=== PATIENT | female | born 2000 | race American Indian/Alaskan Native ===

== ENCOUNTER 2024-09-22 07:49 | Emergency (ER) | payer MEDICAID, SELFPAY ==
[2024-09-22 08:22] VITALS: BP 116/74; PULSE 68; RESP 18; TEMP 37; O2SAT 99; BMI 35.7
--- NOTE | 2024-09-22 08:46 | EDNOTE_ITS ---
<Statement entered by Sylvie De Jesus MD - 09/29/24 04:26> As co-signing physician, I was present and available for consult prn. I concur with the plan and care as documented by the midlevel provider. Nausea/Vomit./Diarrhea-RME/HPI General Chief complaint: Nausea/Vomiting/Diarrhea Stated complaint: STOMACH/BACK BURNING,NAUCEOUS,ABD HURTS TO TOUCH Time Seen by Provider: 09/22/24 07:54 Arrival date/time: 09/22/24 07:49 This is a 23-year-old female that comes in with complaints of lower back pain and also burning to her stomach. Patient denies any urinary symptoms. Patient was diagnosed with H. pylori but did not finish the medications that she was prescribed. Patient states burning is better. Patient denies any past medical history. Related Data Previous Rx's ?Medication ?Instructions ?Recorded acetaminophen 500 mg capsule 500 mg PO QID PRN pain #3 0 caps 11/06/22 famotidine 20 mg tablet 20 mg PO BID #20 tabs ibuprofen 800 mg tablet 800 mg PO Q6H PRN pain #14 t abs 09/22/24 Allergies Allergy/AdvReac Type Severity Reaction Status Date / Time No Known Allergies Allergy Verified 09/22/24 07:53 Review of Systems Review of Systems Systems Reviewed: All systems reviewed, normal except as documented Past Medical History Past Medical History CARDIAC: Negative Congestive Heart Failure RESPIRATORY: Negative Chronic Obstructive Pulmonary Disease (COPD) GENITOURINARY: Negative Renal Disease ENDOCRINE: Negative Diabetes Mellitus Type 1 or Diabetes Mellitus Type 2 Social History SMOKING STATUS: Never smoker ED Exam General General appearance: Present alert and in no apparent distress Head Head exam: Present atraumatic Eye Eye exam: Present normal appearance, PERRL and EOMI ENT ENT exam: Present normal exam, normal oropharynx and mucous membranes moist Neck Neck exam: Present normal inspection, full ROM and trachea midline Chest Chest inspection: Present normal inspection and symmetric chest wall rise Respiratory Respiratory exam: Present normal lung sounds bilaterally Cardiovascular Cardiovascular exam: Present regular rate and other (Cap refill less than 2 seconds) Abdominal Exam Abdominal exam: Present soft and normal bowel sounds Extremities Exam Extremities exam: Present normal inspection and full ROM Back Exam Back exam: Present normal inspection and full ROM Neurological Exam Neurological exam: Present alert, oriented X3 and CN II-XII intact Psychiatric Psychiatric exam: Present normal affect and normal mood Skin Skin exam: Present warm, dry and intact Course Quality Measures none Orders Category Date Time Status HCG Qualitative,Urine Stat Lab 09/22/24 09:09 Completed Urinalysis, C/S if Indicated Stat Lab 09/22/24 09:09 Completed Urine Culture Stat Lab 09/22/24 09:09 Completed Famotidine [Pepcid] Med 09/22/24 08:37 Discontinued 20 mg PO X1 ONE Ibuprofen Tab [Motrin Tab] Med 09/22/24 10:03 Discontinued 800 mg PO X1 ONE Lidocaine 2% Viscous [Xylocaine 2% Viscous] Med 09/22/24 08:36 Discontinued 10 ml PO X1 ONE mg Hyd/Al Hyd/Kely Susp [Maalox Susp] Med 09/22/24 08:36 Discontinued 30 ml PO X1 ONE Vital Signs Vital signs: Vital Signs Temperature 98.6 F 09/22/24 08:22 Pulse Rate 68 09/22/24 08:22 Respiratory Rate 18 09/22/24 08:22 Blood Pressure 116/74 09/22/24 08:22 Pulse Oximetry (%) 99 09/22/24 08:22 Oxygen Delivery Method Room Air 09/22/24 08:22 Nausea/Vomiting/Diarrhea MDM Narrative MDM Narrative:: UA does not show acute infection. Patient feels better after GI cocktail. Will send patient to follow-up with primary provider. Patient was diagnosed with H. pylori but did not finish the last days of medication. Patient will need follow-up with her primary provider for this problem. Patient feels better and feels comfortable going home at this time. Patient data External records reviewed:: [facility] previous records Clinical information provided by:: patient Social determinants that could affect healthcare access:: none Patient has the following chronic illnesses:: h pylori How is presenting disease/condition affected by chronic disease/condition?: no chronic disease Evaluation data The following diagnostics were reviewed and interpreted by me:: lab results Lab and/or radiology exams considered but not ordered:: none Interpretation Summary: see note Medications / Prescriptions Medications / Prescriptions considered but not ordered:: none Medication administrations:: Medication Administration History Discontinued Medications Al Hydrox/Mg Hydrox/Simethicone (Mg Hyd/Al Hyd/Kely (Maalox Reg) Susp 30 Ml Udc) 30 ml PO X1 ONE Stop: 09/22/24 08:37 Last Admin: 09/22/24 09:01 Dose: 30 ml Documented By: DAVID Famotidine (Famotidine 20 Mg Tablet) 20 mg PO X1 ONE Stop: 09/22/24 08:38 Last Admin: 09/22/24 08:59 Dose: 20 mg Documented By: DAVID Ibuprofen (Ibuprofen Tab 400 Mg Tablet) 800 mg PO X1 ONE Stop: 09/22/24 10:04 Last Admin: 09/22/24 10:08 Dose: 800 mg Documented By: DAVID Lidocaine HCl (Lidocaine Viscous 2% 15 Ml Udc) 10 ml PO X1 ONE Stop: 09/22/24 08:37 Last Admin: 09/22/24 09:01 Dose: 10 ml Documented By: DAVID see mar Consultations Consultation(s) initiated? (list below): No Diagnosis Nausea Differential Diagnosis: food poisoning, gastroenteritis and other (gerd, gatritis, h pylori ) Most likely diagnosis given after review of the tests above:: abd pain likely secondary to h pyloric recnetly dx, feels better with gi cocktail Admission Indicated Admission indicated?: not indicated Admission Request Was there a request for admission?: No Disposition Plan Disposition Plan: Discharge Discharge Attestation Discharge Attestation: The patient and all family members were given an opportunity to ask questions and understood the discharge instructions. Discharge instructions specifically effects, indications for sooner follow up or return to the emergency department, and the expected course of current diagnosis. Patient condition: Stable Discharge Plan Plan Patient Disposition: HOME (Self Care) Patient condition on transfer: Stable Prescriptions/Referrals Prescriptions/Med Rec: New famotidine 20 mg tablet 20 mg PO BID Qty: 20 0RF ibuprofen 800 mg tablet 800 mg PO Q6H PRN (Reason: pain) Qty: 14 0RF No Action acetaminophen 500 mg capsule 500 mg PO QID PRN (Reason: pain) Qty: 30 0RF Referrals: Alvaro Sherman PA-C [Primary Care Provider] - In 1 week Problem List Clinical Impression: Abdominal pain Patient/Caregiver Discharge Instructions Discharge Activity: activity as tolerated Education Materials: Abdominal Pain Additional Instructions: Follow-up with primary provider tomorrow. Please make sure that you let them know that you did not finish the H. pylori medications. Come back to the emergency room if symptoms change or worsen. Print Language: Moldovan Stand Alone Forms: Sanna Award Info., Patient Portal Info Letter SHAHZAD/REPAIR CLERK Supervising Physician PA/REPAIR CLERK Supervising Physician: JOSÉ MANUEL
[2024-09-22] MEDS: FAMOTIDINE 20 MG TABLET PO (08:59)
[2024-09-22] MEDS: MG HYD/AL HYD/SIME (Maalox Reg) SUSP 30 ML UDC PO (09:01)
[2024-09-22] MEDS: LIDOCAINE VISCOUS 2% 15 ML UDC 10 ML PO (09:01)
[2024-09-22 09:32] LABS: Collection Type, Urine Voided
[2024-09-22 09:34] LABS: HCG Qualitative,Urine Negative
[2024-09-22 09:41] LABS: Bilirubin,Urine Negative (Negative); Blood,Urine Negative (Negative); Clarity,Urine Turbid (Clear/Hazy); Color,Urine Yellow (Lt Yel-Yel); Culture Indicated,Urine Not Indicated; Glucose, Urine Negative (Negative); Ketones,Urine Negative (Negative); Leukocyte Esterase,Urine Positive (Negative); Nitrite,Urine Negative (Negative); PH,Urine 5.5 (5.0-7.0); Protein,Urine Negative (Neg - Trace); RBC,Urine 1 /hpf (0-3); Squamous Epithelial Cell,Urine 11 /hpf (0-5); Urobilinogen,Urine Negative mg/dL (0.0-1.0); WBC,Urine 2 /hpf (0-5)
[2024-09-22] MEDS: IBUPROFEN TAB 400 MG TABLET 800 MG PO (10:08)
--- NOTE | 2024-09-22 10:30 | PC.NURSE ---
LAB CALLED AND NOTIFIED OF URINE CULTURE ADD ON. PER LAB, WILL ADD ON.
== END 2024-09-22 10:31 | disposition home or self-care (01) ==
PROVIDERS: Nurse Practitioner Family; Emergency Provider Emergency Medicine; PCP Physician Assistant
DX: R10.9 Unspecified abdominal pain (principal); M54.50 Low back pain, unspecified
CPT/HCPCS: 81001; 81025; 87086; 99283; J3490; A9270

== ENCOUNTER 2024-11-18 12:21 | Emergency (ER) | payer MEDICAID, SELFPAY ==
[2024-11-18 12:22] VITALS: BMI 34.5
[2024-11-18 12:34] VITALS: BP 114/78; PULSE 89; RESP 19; TEMP 36.5; O2SAT 98
--- NOTE | 2024-11-18 12:35 | XR_ITS ---
Examination: CT abdomen and pelvis without contrast. Coronal 3-D reconstructions. Sagittal 2-D reconstructions. Date and time of exam:November 18, 2024 1405 hours INDICATIONS: Generalized abdominal pain nausea vomiting and diarrhea today CTDI: vol (mGy): 9.15 DLP: (mGycm): 521 Technique: Axial images of the abdomen have been obtained, 3 mm slice thickness Intravenous contrast material has not been administered. Low dose protocols were performed. One or more of the following dose reduction techniques were used; automated exposure control, adjustment of the mA and/or KV according to patient size, use of iterative reconstruction technique. Findings: 12 mm right lobe liver lesion on this noncontrast study No gallstones Spleen not enlarged No pancreatic or adrenal mass No renal or ureteral calculi, no hydronephrosis 6 mm fat-containing inguinal hernia Normal appendix No bowel obstruction No nonspecific colitis pattern Anteverted uterus Vaginal pessary Intact urinary bladder IMPRESSION: 12 mm right lobe liver lesion, recommend elective MRI abdomen liver follow-up pre and postcontrast
--- NOTE | 2024-11-18 12:35 | PD.EDRME ---
Rapid Medical Screening Exam RME Arrival date/time: 11/18/24 12:21 23-year-old female presents to the emergency department today for complaint of lower abdominal pain. Chief Complaint: Abdominal Pain Vital signs: Vital Signs Temperature 97.7 F 11/18/24 12:34 Pulse Rate 89 11/18/24 12:34 Respiratory Rate 19 11/18/24 12:34 Blood Pressure 114/78 11/18/24 12:34 Pulse Oximetry (%) 98 11/18/24 12:34 Oxygen Delivery Method Room Air 11/18/24 12:34
[2024-11-18] MEDS: METOCLOPRAMIDE 5 MG TABLET 10 MG PO (13:09)
[2024-11-18] MEDS: FAMOTIDINE 20 MG TABLET PO (13:09)
[2024-11-18 13:14] LABS: Basophils % (Auto) 0 % (0-2.5); Eosinophils # (Auto) 0.1 Thou/mm3 (0.0-0.5); Eosinophils % (Auto) 1 % (0-10); Hematocrit 42.2 % (36.0-46.0); Hemoglobin 14.9 g/dL (12.0-16.0); Immature Granulocytes % (Auto) 0 % (0-0); Immature Granulocytes Auto 0.02 Thou/mm3 (0.00-0.00); Lymphocytes # (Auto) 2.1 Thou/mm3 (1.0-4.8); Lymphocytes % (Auto) 18 % (10-50); Mean Corpuscular HGB Conc 35.3 g/dl (31.0-37.0); Mean Corpuscular Hemoglobin 32.5 pg (25.0-35.0); Mean Corpuscular Volume 92 fL (80-100); Monocytes # (Auto) 0.6 Thou/mm3 (0.0-0.8); Monocytes % (Auto) 5 % (0-12); Neutrophils % (Auto) 76 % (37-80); Nucleated Red Blood Cell % 0 /100 WBC (0); Platelet Count 321 Thou/mm3 (140-440); RDW Standard Deviation 39.4 fL (36.4-46.3); Red Blood Count 4.59 Miln/mm3 (4.00-5.20); White Blood Count 11.9 Thou/mm3 (3.6-11.0)
[2024-11-18 13:30] LABS: Alanine Aminotransferase 14 U/L (10-49); Albumin, Serum 4.9 gm/dL (3.5-5.0); Alkaline Phosphatase 61 U/L (46-116); Anion Gap 9 (7-16); Aspartate Amino Transferase 20 U/L (0-34); BUN/Creatinine Ratio 8 Ratio (12-20); Bilirubin,Total 0.9 mg/dL (0.3-1.2); Blood Urea Nitrogen 6 mg/dL (9-23); Calcium 9.8 mg/dL (8.3-10.6); Calcium (Corrected) 9.8 mg/dL (8.5-10.1); Carbon Dioxide 25.9 mMol/L (20.0-31.0); Chloride 106 mMol/L (98-107); Creatinine (Component) 0.8 mg/dL (0.6-1.3); Estimated Creatinine Clearance 103.5 mL/min (>60); Globulin 2.5 gm/dL (2.3-3.5); Glucose 92 mg/dL (74-106); Lipase 28 U/L (12-53); Osmolality,Calculated 278 (275-295); Potassium 3.9 mMol/L (3.4-5.1); Sodium 141 mMol/L (136-145); Total Protein 7.4 gm/dL (5.7-8.2); eGFR > 60 See Note
[2024-11-18 13:39] LABS: Collection Type, Urine Clean Catch
[2024-11-18 13:50] LABS: Bacteria,Urine Rare; Bilirubin,Urine Negative (Negative); Blood,Urine 3+ (Negative); Clarity,Urine Turbid (Clear/Hazy); Color,Urine Yellow (Lt Yel-Yel); Culture Indicated,Urine Not Indicated; Glucose, Urine Negative (Negative); Ketones,Urine 2+ (Negative); Leukocyte Esterase,Urine Positive (Negative); Nitrite,Urine Negative (Negative); PH,Urine 5.5 (5.0-7.0); Protein,Urine 1+ (Neg - Trace); RBC,Urine 34 /hpf (0-3); Specific Gravity,Urine 1.029 (1.001-1.035); Squamous Epithelial Cell,Urine 91 /hpf (0-5); Urobilinogen,Urine Negative mg/dL (0.0-1.0); WBC,Urine 5 /hpf (0-5)
[2024-11-18 13:54] LABS: HCG Qualitative,Urine Negative
[2024-11-18 15:10] VITALS: BP 109/72; PULSE 76; RESP 16; TEMP 36.7; O2SAT 100
--- NOTE | 2024-11-18 15:19 | PD.EDABDPN ---
ED Abdominal Pain RME/HPI General Chief Complaint: Abdominal Pain Stated complaint: ABD PAIN, VOMITING, FAINTED, BACK IS BURNING 10PM Time seen by provider: 11/18/24 13:50 Arrival date/time: 11/18/24 12:21 Limitations: no limitations RME / HPI RME / HPI narrative: 11/18/24 12:21 23-year-old female presents to the emergency department today for complaint of lower abdominal pain. 15:19 Patient is a 23-year-old female who is here today with a one 1 day history of nausea, vomiting, and diarrhea. She has no blood. She states this happens about once monthly and has been occurring for about 2 years. She states she was recently treated for H. pylori and then tested negative for that afterwards. She has no history of recent sick contacts. No recent surgeries. No recent traveling. She has no chronic disease. She has no other acute complaints. Related Data Previous Rx's ?Medication ?Instructions ?Recorded acetaminophen 500 mg capsule 500 mg PO QID PRN pain #30 caps 11/06/22 famotidine 20 mg tablet 20 mg PO BID #20 tabs 09/22/24 ibuprofen 800 mg tablet 800 mg PO Q6H PRN pain #14 tabs 09/22/24 Allergies Allergy/AdvReac Type Severity Reaction Status Date / Time No Known Allergies Allergy Verified 11/18/24 12:25 Review of Systems Review of Systems Systems Reviewed: All systems reviewed, normal except as documented ED Exam General Limitations: Present no limitations General appearance: Present alert and in no apparent distress Head Head exam: Present atraumatic Eye Eye exam: Present normal appearance, PERRL and EOMI ENT ENT exam: Present normal exam, normal oropharynx and mucous membranes moist Neck Neck exam: Present normal inspection, full ROM and trachea midline Chest Chest inspection: Present normal inspection and symmetric chest wall rise Respiratory Respiratory exam: Present normal lung sounds bilaterally Cardiovascular Cardiovascular exam: Present regular rate, normal rhythm and normal heart sounds Abdominal Exam Abdominal exam: Present soft and normal bowel sounds Extremities Exam Extremities exam: Present normal inspection and full ROM Back Exam Back exam: Present normal inspection and full ROM Neurological Exam Neurological exam: Present alert, oriented X3 and CN II-XII intact Psychiatric Psychiatric exam: Present normal affect and normal mood Skin Skin exam: Present warm, dry, intact and normal color Course Quality Measures none Orders Category Date Time Status CT abdomen pelvis wo con Stat Exams 11/18/24 12:35 Completed CBC Stat Lab 11/18/24 12:53 Completed Comprehensive Metabolic Panel Stat Lab 11/18/24 12:53 Completed HCG Qualitative,Urine Stat Lab 11/18/24 13:33 Completed Lipase Stat Lab 11/18/24 12:53 Completed UA, C/S IF [Urinalysis, C/S if Indicated] Stat Lab 11/18/24 13:33 Completed Famotidine [Pepcid] Med 11/18/24 12:36 Discontinued 20 mg PO X1 ONE Metoclopramide [Reglan] Med 11/18/24 12:36 Discontinued 10 mg PO X1 ONE Vital Signs Vital signs: Vital Signs Temperature 97.7 F 11/18/24 12:34 Pulse Rate 89 11/18/24 12:34 Respiratory Rate 19 11/18/24 12:34 Blood Pressure 114/78 11/18/24 12:34 Pulse Oximetry (%) 98 11/18/24 12:34 Oxygen Delivery Method Room Air 11/18/24 12:34 Abdominal Pain MDM MDM Narrative [facility] Narrative:: Patient is a 23-year-old female who is here today with a one 1 day history of nausea, vomiting, and diarrhea. She has no blood. She states this happens about once monthly and has been occurring for about 2 years. She states she was recently treated for H. pylori and then tested negative for that afterwards. She has no history of recent sick contacts. No recent surgeries. No recent traveling. She has no chronic disease. She has no other acute complaints On exam, patient is nontoxic appearing in no visible signs distress. Abdomen is soft and supple. Vital signs are stable. Her workup here is essentially unremarkable. We discussed the radiology report and the mention of a atypical finding on her liver. We will have her follow-up with GI as an outpatient. We discussed return precautions. She agrees to return as needed for worsening or emergent changes. Patient data External records reviewed:: None Clinical information provided by:: patient Social determinants that could affect healthcare access:: none Patient has the following chronic illnesses:: Abdominal pain How is presenting disease/condition affected by chronic disease/condition?: exacerbated by Evaluation data The following diagnostics were reviewed and interpreted by me:: lab results (No metabolic derangement) and radiology exam(s) (No acute pathology) Lab and/or radiology exams considered but not ordered:: n/a Interpretation Summary: Unremarkable for acute pathology Medications / Prescriptions Medications or Prescriptions considered but not ordered:: n/a Medication administrations:: Medication Administration History Discontinued Medications Famotidine (Famotidine 20 Mg Tablet) 20 mg PO X1 ONE Stop: 11/18/24 12:37 Last Admin: 11/18/24 13:09 Dose: 20 mg Documented By: SF Metoclopramide HCl (Metoclopramide 5 Mg Tablet) 10 mg PO X1 ONE Stop: 11/18/24 12:37 Last Admin: 11/18/24 13:09 Dose: 10 mg Documented By: SF see above Consultations Consultation(s) initiated? (list below): No Diagnosis Differential diagnosis abdominal pain: abdominal pain, acute appendicitis, constipation, gastroenteritis and pancreatitis Most likely diagnosis given after review of the tests above:: Chronic abdominal pain Admission Indicated Admission indicated?: not indicated Admission Request Was there a request for admission?: No Disposition Plan Disposition Plan: Discharge Discharge Attestation Discharge Attestation: The patient and all family members were given an opportunity to ask questions and understood the discharge instructions. Discharge instructions specifically effects, indications for sooner follow up or return to the emergency department, and the expected course of current diagnosis. Patient condition: Stable Discharge Plan Plan Patient Disposition: HOME (Self Care) Patient condition on transfer: Stable Prescriptions/Referrals Prescriptions/Med Rec: No Action acetaminophen 500 mg capsule 500 mg PO QID PRN (Reason: pain) Qty: 30 0RF famotidine 20 mg tablet 20 mg PO BID Qty: 20 0RF ibuprofen 800 mg tablet 800 mg PO Q6H PRN (Reason: pain) Qty: 14 0RF Referrals: Bonifacio Sanchez MD [Physician] - In 1 week Alvaro Sherman PA-C [Primary Care Provider] - In 1 week Problem List Clinical Impression: Gastroenteritis Patient/Caregiver Discharge Instructions Education Materials: ED Gastroenteritis, Noninfectious Additional Instructions: Continue current therapies. Contact gastroenterology to schedule follow-up appointment. Return here for as needed for any emergent changes. Print Language: Syrian Stand Alone Forms: Sanna Award Info., Patient Portal Info Letter
== END 2024-11-18 15:45 | disposition home or self-care (01) ==
PROVIDERS: Nurse Practitioner Primary Care; Emergency Provider Family Medicine; PCP Physician Assistant
DX: K52.9 Noninfective gastroenteritis and colitis, unspecified (principal)
CPT/HCPCS: 36415; 74176; 80053; 81001; 81025; 83690; 85025; 99284; A9270